=== PATIENT | male | born 1965 | race Caucasian/White ===

== ENCOUNTER → 2021-03-30 | Outpatient (CLI) | payer OTHER ==
[~2021-03-30] MED LIST: FENOFIBRATE160 MG PO; LIPITOR TAB 2020 MG PO; LOSARTAN POTASS50 MG PO; NEURONTIN 400400 MG PO; NIACIN500 M1 PO; PINK BISMUTH262 MG PO; PIOGLITAZONE HC30 MG PO; PROTONIX 40 MG40 M1 PO; ROPINIROLE HC0.25 MG PO; SUMATRIPTAN SU100 MG PO; VITAMIN D350000 UNIT PO
== END ==
LOC: EXRD 03-01 13:30
DX: E04.9 Nontoxic goiter, unspecified (principal); E04.2 Nontoxic multinodular goiter
CPT/HCPCS: 76536

== ENCOUNTER → 2021-05-05 | Day surgery (SDC) | payer OTHER ==
[~2021-05-05] MED LIST changes: +AMLODIPINE BESYLATE PO; +ATENOLOL100 MG PO; +CARVEDILOL PO; +CATAPRES 0.1MG0.1 MG PO; +DILTIAZEM 24HR180 M1 PO; +FAMOTIDINE20 MG PO; +LOSARTAN-HCTZ1 EAC1 PO; +TRESIBA FL100 UNIT/1 SQ
== END | disposition home or self-care (01) ==
LOC: OR 07:01
DX: K22.70 Barrett's esophagus without dysplasia (principal); K21.00 Gastro-esophageal reflux disease with esophagitis, without bleeding; K29.51 Unspecified chronic gastritis with bleeding; K31.9 Disease of stomach and duodenum, unspecified; I10 Essential (primary) hypertension; E78.5 Hyperlipidemia, unspecified; E11.9 Type 2 diabetes mellitus without complications; E78.00 Pure hypercholesterolemia, unspecified; G47.30 Sleep apnea, unspecified; J45.909 Unspecified asthma, uncomplicated; F17.200 Nicotine dependence, unspecified, uncomplicated; E66.3 Overweight; Z68.27 Body mass index [BMI] 27.0-27.9, adult; Z99.89 Dependence on other enabling machines and devices; Z88.0 Allergy status to penicillin; Z79.4 Long term (current) use of insulin; Z79.899 Other long term (current) drug therapy; Z80.0 Family history of malignant neoplasm of digestive organs
CPT/HCPCS: 82962; J2704; J7040

== ENCOUNTER → 2021-06-09 | Outpatient (CLI) | payer OTHER ==
[~2021-06-09] MED LIST changes: +COREG 12.5MG12.5 MG PO; +ECOTRIN81 MG PO; +HYDROCODON-ACE1 EAC4 PO; +LEVOTHYROXINE100 MCG PO; -LIPITOR TAB 2020 MG PO; +LIPITOR80 MG PO; +MULTI-VITAMIN1 EACH PO; +POTASSIUM GLUCO99 MG PO; +PROTONIX40 MG PO; +PROVENTIL HFA6.7 GM INH; +TUMS200 MG PO; +VITAMIN D325 MC6 PO
== END ==
LOC: OPSV2 10:30
PROVIDERS: Surgery
DX: Z01.818 Encounter for other preprocedural examination (principal); I10 Essential (primary) hypertension; E11.9 Type 2 diabetes mellitus without complications; R94.31 Abnormal electrocardiogram [ECG] [EKG]
CPT/HCPCS: 36415; 80048; 93005

== ENCOUNTER 2021-09-18 13:53 | Emergency (ER) | payer OTHER ==
[2021-09-18 14:26] LABS: HEMOGLOBIN 16.7 gm/dl (14.0-17.5); RED BLOOD COUNT 5.9 M/UL (4.20-5.50); WHITE BLOOD COUNT 10.1 K/UL (4.5-11.0)
[2021-09-18] MEDS ORDERED: MACROBID 100 M100 MG PO (17:05)
== END 2021-09-18 17:15 | disposition home or self-care (01) ==
LOC: ER1 13:53
PROVIDERS: Physician Assistant
DX: N39.0 Urinary tract infection, site not specified (principal); I12.9 Hypertensive chronic kidney disease with stage 1 through stage 4 chronic kidney disease, or unspecified chronic kidney disease; N18.9 Chronic kidney disease, unspecified; J90 Pleural effusion, not elsewhere classified; F17.200 Nicotine dependence, unspecified, uncomplicated; E11.22 Type 2 diabetes mellitus with diabetic chronic kidney disease; Z79.84 Long term (current) use of oral hypoglycemic drugs; Z88.0 Allergy status to penicillin
CPT/HCPCS: 71045; 80053; 81001; 82550; 82553; 83690; 84484; 85025; 87086; 93005; 96374; 99284

== ENCOUNTER 2022-01-04 22:36 | Emergency (ER) | payer OTHER ==
[~2022-01-04 22:36] MED LIST changes: +MACROBID 100 M100 MG PO
== END 2022-01-04 23:40 | disposition left against medical advice (07) ==
LOC: ER1 22:36
DX: S99.921A Unspecified injury of right foot, initial encounter (principal); F17.210 Nicotine dependence, cigarettes, uncomplicated; E11.9 Type 2 diabetes mellitus without complications; Z88.0 Allergy status to penicillin; I10 Essential (primary) hypertension; W20.8XXA Other cause of strike by thrown, projected or falling object, initial encounter; W26.0XXA Contact with knife, initial encounter
CPT/HCPCS: 73630; 99281